=== PATIENT | female | born 1980 | race Caucasian/White ===

== ENCOUNTER 2018-09-18 10:10 | Outpatient (CLI) | payer OTHER | END 2018-09-18 10:11 | disposition home or self-care (01) | LOC: SONOGRAMA 10:10 | DX: C07 Malignant neoplasm of parotid gland (principal) ==

== ENCOUNTER 2024-07-30 06:02 | Day surgery (SDC) | payer OTHER ==
[2024-07-23 14:48] VITALS: BP 103/69
[2024-07-23 15:39] LABS: HEMATOCRIT 34.3 % (36.0-45.00); HEMOGLOBIN 11.4 g/dL (12.0-15.00); MEAN CORPUSCULAR HEMOGLOBIN 28.9 pg (27.00-32.0); MEAN CORPUSCULAR HGB CONC 33.2 g/dl (32.0-36.0); PLATELET COUNT 210 K/uL (150-450); RED BLOOD COUNT 3.95 M/uL (4.00-6.00); RED CELL DISTRIBUTION WIDTH 14.6 % (11.5-14.5)
[2024-07-23 15:47] LABS: URINE APPEARANCE Clear; URINE BILIRRUBIN Negative (NEGATIVE); URINE BLOOD Negative; URINE COLOR Dark Yellow; URINE KETONE Trace (NEGATIVE); URINE LEUKOCYTE Negative; URINE NITRATE Negative; URINE PROTEIN Trace (NEGATIVE)
[2024-07-23 15:48] LABS: URINE BACTERIA 343.9 uL (0.0-1933); URINE EPITHELIAL CELLS 18.6 uL (0.0-38.8); URINE RBC 8.8 uL (0.0-20.8)
[2024-07-23 15:58] LABS: COL EPI 93 SECONDS (82-175)
[2024-07-23 16:03] LABS: INR 1.04; PARTIAL THROMBOPLASTIN TIME 22.6 SECONDS (22.0-34.0); PROTHROMBIN TIME 11.3 SECONDS (9.0-11.5)
[2024-07-23 16:20] LABS: ALBUMIN 4.2 gm/dL (3.4-5.0); BILIRUBIN TOTAL 0.57 mg/dL (0.3-1.2); CALCIUM 9.3 mg/dL (8.5-10.1); CREATININE SERUM 0.75 mg/dL (0.55-1.02); GFR 85.16; GLOBULINA 3.9 G/DL (2.4-3.5); POTASSIUM 3.69 mEq/L (3.5-5.1); TOTAL PROTEIN 8.1 gm/dL (6.4-8.2)
[2024-07-23 16:32] LABS: URINE CAST 0.44 uL (0.0-1.40); URINE GLUCOSE >=1000 MG/DL (NEGATIVE)
[~2024-07-30] VITALS: Ht 162.6 cm; Wt 64.4 kg
[2024-07-30] MEDS ORDERED: DEXAMETHASONE SODIUM PHOSP/PF 10 MG/ML VIAL IV ONE (08:30)
[2024-07-30] MEDS ORDERED: ISOPROPYL ALCOHOL 30 ML OUNCE TOP SCH (09:30)
[2024-07-30] MEDS ORDERED: CEFAZOLIN SODIUM 1,000 MG VIAL IV SCH (09:30)
[2024-07-30] MEDS ORDERED: SUGAMMADEX SODIUM 200 MG/2 ML VIAL IV SCH (09:45)
== END 2024-07-30 16:50 | disposition home or self-care (01) ==
LOC: CIR.AMB 06:02
PROVIDERS: ATTEND Orthopaedic Surgery
DX: S52.021A Displaced fracture of olecranon process without intraarticular extension of right ulna, initial encounter for closed fracture (principal); Z88.6 Allergy status to analgesic agent
CPT/HCPCS: 24685; 20902; L8699

== ENCOUNTER 2024-08-23 07:53 | Outpatient (CLI) | payer OTHER | END 2024-08-23 07:58 | disposition home or self-care (01) | LOC: RAD 07:53 | PROVIDERS: ATTEND Orthopaedic Surgery | DX: S42.461D Displaced fracture of medial condyle of right humerus, subsequent encounter for fracture with routine healing (principal); X58.XXXD Exposure to other specified factors, subsequent encounter ==

== ENCOUNTER 2024-10-10 16:49 | Outpatient (CLI) | payer OTHER | END 2024-10-10 17:00 | disposition home or self-care (01) | LOC: RAD 16:49 | PROVIDERS: ATTEND Orthopaedic Surgery | DX: M75.51 Bursitis of right shoulder (principal); S42.461D Displaced fracture of medial condyle of right humerus, subsequent encounter for fracture with routine healing ==

== ENCOUNTER 2025-03-19 07:30 | Inpatient (IN) | payer OTHER ==
[~2025-03-19] VITALS: Ht 162.6 cm; Wt 65.8 kg
[2025-03-19 10:08] LABS: BASO % 0.7 % (0.1-1.2); EOS # 0.09 (0.04-0.54); EOS % 1.0 % (0.7-7.0); LYMPH # 2.09 (1.18-3.74); LYMPH % 23.8 % (19.3-53.1); MEAN PLATELET VOLUME 9.40 fl (9.4-12.4); MONO # 0.67 (0.24-0.82); MONO % 7.6 % (4.7-12.5); NEUT # 5.80 (1.56-6.13); NEUT % 66.2 % (34.0-71.1); RED CELL DISTRIBUTION WIDTH 14.9 % (11.6-14.4)
[2025-03-19 10:14] LABS: URINE APPEARANCE Clear; URINE BILIRRUBIN Negative (NEGATIVE); URINE BLOOD Negative; URINE COLOR Yellow; URINE GLUCOSE Negative (NEGATIVE); URINE KETONE Negative (NEGATIVE); URINE LEUKOCYTE Negative; URINE NITRATE Negative; URINE PROTEIN Negative (NEGATIVE); URINE UROBILINOGEN 0.2 E.U./dl
[2025-03-19 10:18] LABS: URINE BACTERIA 1847.8 uL (0.0-1933); URINE EPITHELIAL CELLS 21.3 uL (0.0-38.8); URINE RBC 11.8 uL (0.0-20.8); URINE WBC 9.5 uL (0.0-23.2)
[2025-03-19 10:20] LABS: URINE CAST 0.00 uL (0.0-1.40)
[2025-03-19 10:36] LABS: INR 1.0
[2025-03-19 10:52] LABS: ALT/SGPT 25.0 U/L (12-78); AST/SGOT 14.0 U/L (15-37); BILIRUBIN TOTAL 0.52 mg/dL (0.3-1.2); BUN CREA RATIO 28.0 (7.0-25.0); CREATININE SERUM 0.53 mg/dL (0.55-1.02); GFR 126.51; GLOBULINA 3.4 G/DL (2.4-3.5); GLUCOSE FASTING 91.0 mg/dL (65-100); OSMOLALITY SERUM 284.0 MOSM/KG (275-295); TSH 1.9 uIU/mL (0.358-3.74)
[2025-03-19 11:12] VITALS: BP 104/73
[2025-03-19 11:16] VITALS: BP 107/72
[2025-03-21] MEDS ORDERED: CEFOXITIN SODIUM 2,000 MG VIAL IV ONE (07:16)
[2025-03-21] MEDS ORDERED: CHLORHEXIDINE GLUCONATE 120 ML BOTTLE TOP ONE (07:50)
[2025-03-21] MEDS ORDERED: POVIDONE-IODINE 118 ML BOTT TOP ONE (07:50)
[2025-03-21] MEDS ORDERED: PROMETHAZINE HCL 50 MG/ML AMPUL IM SCH (09:27)
[2025-03-21] MEDS ORDERED: MORPHINE SULFATE 4 MG/ML VIAL IV SCH (09:27)
[2025-03-21] MEDS ORDERED: RINGERS SOLUTION,LACTATED 1,000 ML IV SCH (09:30)
[2025-03-21] MEDS ORDERED: ACETAMINOPHEN WITH CODEINE 1 UDTAB TABLET PO PRN (09:30)
[2025-03-21 10:30] LABS: BASO % 0.4 % (0.1-1.2); EOS # 0.04 (0.04-0.54); EOS % 0.4 % (0.7-7.0); LYMPH # 2.20 (1.18-3.74); LYMPH % 21.2 % (19.3-53.1); MEAN PLATELET VOLUME 9.20 fl (9.4-12.4); MONO # 0.87 (0.24-0.82); MONO % 8.4 % (4.7-12.5); NEUT # 7.19 (1.56-6.13); NEUT % 69.1 % (34.0-71.1); RED CELL DISTRIBUTION WIDTH 14.9 % (11.6-14.4)
[2025-03-21 12:13] VITALS: BP 104/73
[2025-03-21 17:03] VITALS: BP 94/71
[2025-03-21 20:00] VITALS: BP 100/69
[2025-03-21 20:18] LABS: BASO % 0.2 % (0.1-1.2); EOS # 0.00 (0.04-0.54); EOS % 0.0 % (0.7-7.0); LYMPH # 1.02 (1.18-3.74); LYMPH % 6.0 % (19.3-53.1); MEAN PLATELET VOLUME 9.30 fl (9.4-12.4); MONO # 0.78 (0.24-0.82); MONO % 4.6 % (4.7-12.5); NEUT # 14.98 (1.56-6.13); NEUT % 88.7 % (34.0-71.1); RED CELL DISTRIBUTION WIDTH 14.7 % (11.6-14.4)
[2025-03-22] VITALS: BP 97/66
[2025-03-22] MEDS ORDERED: FUSION PLUS CA1 EACH PO (08:34)
[2025-03-22] MEDS ORDERED: TRAMADOL HCL50 MG PO (08:34)
[2025-03-22 08:50] VITALS: BP 117/79
== END 2025-03-22 11:06 | disposition home or self-care (01) | DRG 743 ==
LOC: O/R 03-21 06:00 → SURH 03-21 07:00 → OB/GYN 03-21 12:01
PROVIDERS: ADMIT Obstetrics & Gynecology; ATTEND Obstetrics & Gynecology
PROC: 0UT77ZZ Resection of Bilateral Fallopian Tubes, Via Natural or Artificial Opening (ICD-10-PCS; 2025-03-21)
PROC: 0UT97ZZ Resection of Uterus, Via Natural or Artificial Opening (ICD-10-PCS; principal; 2025-03-21 07:00)
DX: N92.0 Excessive and frequent menstruation with regular cycle (principal); N84.0 Polyp of corpus uteri; D25.1 Intramural leiomyoma of uterus; N81.11 Cystocele, midline